=== PATIENT | male | born 1995 | race Caucasian/White ===

== ENCOUNTER 2025-02-23 07:03 | Emergency (ER) | payer OTHER, SELFPAY ==
[2025-02-23 07:17] VITALS: BP 147/78; PULSE 76; RESP 16; TEMP 36.7; O2SAT 100; BMI 25.0
--- NOTE | 2025-02-23 07:38 | DI.CT.S_ITS ---
PROCEDURE: CT ABDOMEN PELVIS W CON INDICATIONS: abd pain TECHNIQUE: After the administration of intravenous contrast, axial sections acquired from the lung bases to the pubic symphysis. Coronal and sagittal reformats were performed. For radiation dose reduction, the following was used: automated exposure control, adjustment of mA and/or kV according to patient size. COMPARISON: None. FINDINGS: Image quality: Diagnostic. Lower Chest: No significant findings. ABDOMEN: Liver: No solid mass. Gallbladder: No radiopaque gallstones or wall thickening. Biliary ducts: No biliary dilation. Pancreas: No ductal dilation. Spleen: Size is within normal limits. Adrenal Glands: No adrenal nodules. Kidneys and Ureters: There is moderate left hydronephrosis and a delayed left nephrogram. The left ureter is moderately dilated. There is a 4 x 6 mm stone at the left UVJ. Stomach and Bowel: Normal colonic caliber, without significant wall thickening. Normal appendix. Peritoneum: No abnormal intraperitoneal fluid. No free air. Ventral Wall: No significant ventral hernia. Abdominal Nodes: No retroperitoneal or mesenteric adenopathy by size criteria. Vessels: Aorta and inferior vena cava are normal in size. PELVIS: Pelvic Organs: Unremarkable. Bladder: No bladder wall thickening, accounting for underdistention. Pelvic Nodes: No enlarged lymph nodes. Miscellaneous: No inguinal hernias are seen. Bones: No aggressive osseous abnormality. IMPRESSION: A 4 x 6 mm stone obstructs the left ureter at the ureterovesical junction resulting in a delayed left nephrogram and moderate left hydronephrosis. The stone looks as if it is about to pass into the bladder. Dictated by: Tani Lara M.D. on 02/23/2025 at 8:01 Approved by: Tani Lara M.D. on 02/23/2025 at 8:08
[2025-02-23 07:40] LABS: Add Manual Diff / Slide Review NO; Hematocrit 43.3 % (41-53); Hemoglobin 15.5 g/dL (13.5-17.5); Lymphocytes Absolute Auto 1500 /uL (1100-4500); Mean Corpuscular HGB Conc 35.9 % (30-36); Mean Corpuscular Hemoglobin 32.7 PG (26-34); Mean Corpuscular Volume 91.2 fL (80-100); Platelet Count 196 X10^3/uL (150-400)
--- NOTE | 2025-02-23 07:42 | ED.ABDPAIN ---
HPI - Abdominal Pain General Chief Complaint: Abdominal Pain Stated Complaint: Lower stomach pain going to lower back x 1 day Time Seen by Provider: 02/23/25 07:38 Source: patient Mode of arrival: Ambulatory History of Present Illness HPI narrative: 29-year-old gentleman presents with left lower quadrant pain radiating to left flank region her last evening but occurred again this morning at 4:00 a.m. radiating to left groin region along with right lower quadrant also. Patient denies nausea, vomiting, diarrhea, constipation, rectal bleeding, urinary complaints, fever, chills, body aches. He last ate last evening at 5:00 p.m. Other than what is stated 14 point review of system is negative. Related Data Previous Rx's ?Medication ?Instructions ?Recorded prednisone 20 mg tablet 0 PO QDAY #7 tabs 07/28/16 hydrocodone 5 mg-acetaminophen 325 1 tab PO Q4-6H PRN pain #20 tabs 02/23/25 mg tablet tamsulosin 0.4 mg capsule (Flomax) 0.4 mg PO DAILY #30 caps 02/23/25 Allergies Allergy/AdvReac Type Severity Reaction Status Date / Time No Known Drug Allergies Allergy Verified 02/23/25 07:18 Review of Systems Review of Systems ROS Unobtainable: All systems reviewed & are unremarkable except as noted in HPI and below Patient History Social History Smoking Status: Current every day smoker Smoking Status: Current every day smoker Exam Narrative Exam Narrative: GENERAL: [29] year old patient appears stated age. Well-developed patient, in mild distress. HEAD: Atraumatic. Normocephalic. EYES: Pupils equal round and reactive. Extraocular motions intact. No scleral icterus. No injection or drainage. ENT: Nose without bleeding, purulent drainage. Throat without erythema, tonsillar hypertrophy or exudate. Airway patent. NECK: Trachea midline. Non tender CARDIOVASCULAR: Regular rate and rhythm without murmurs, gallops, or rubs. RESPIRATORY: Clear to auscultation. Breath sounds equal bilaterally. No wheezes, rales, or rhonchi. GASTROINTESTINAL: Abdomen soft, LLQ no r/r/g nondistended. EXTREMITIES: No edema or joint tenderness. BACK: Nontender without deformity or crepitance. No flank tenderness. NEURO: AOx3. SKIN: No rash or erythema of visible areas Initial Vital Signs Initial Vital Signs: Vital Signs Temperature 98.0 F 02/23/25 07:17 Pulse Rate 76 02/23/25 07:17 Respiratory Rate 16 02/23/25 07:17 Blood Pressure 147/78 H 02/23/25 07:17 Pulse Oximetry 100 02/23/25 07:17 Oxygen Delivery Method Room Air 02/23/25 07:17 Course Orders Ordered: ED Orders 02/23/25 07:21 EKG-12 Lead Stat 02/23/25 07:32 Complete Blood Count AUTO DIFF Stat Comprehensive Metabolic Panel Stat Lipase Stat 02/23/25 07:38 CT abdomen pelvis w con Stat 02/23/25 08:55 Urine Microscopic Stat Ondansetron HCl (Ondansetron 4 Mg/2 Ml Inj) 4 mg IV NOW PRN PRN Reason: Nausea And Vomiting Ondansetron HCl (Ondansetron 4 Mg Odt) 4 mg PO NOW PRN PRN Reason: Nausea And Vomiting Discontinued Medications Lactated Ringer's (Lactated Ringers) 1,000 mls @ 1,000 mls/hr IV BOLUS ONE Stop: 02/23/25 08:37 Last Infusion: 02/23/25 08:49 Dose: Infused Documented By: Admin: 02/23/25 07:51 Dose: 1,000 mls/hr Documented By: AILEEN Ketorolac Tromethamine (Ketorolac 30 Mg/Ml Vial) 15 mg IV NOW ONE Stop: 02/23/25 07:39 Last Admin: 02/23/25 07:50 Dose: 15 mg Documented By: AILEEN Vital Signs Vital signs: Vital Signs - 8 hr 02/23/25 07:17 Temperature 98.0 F Pulse Rate 76 Respiratory Rate 16 Blood Pressure 147/78 H Pulse Oximetry 100 Oxygen Delivery Method Room Air MDM - Abdominal Pain Lab Data 02/23/25 07:32 02/23/25 07:32 Labs: Lab Results 02/23/25 Range/Units 07:32 WBC 4.9 (4.5-11.0) X10^3/uL RBC 4.74 (4.5-5.9) X10^6/uL Hgb 15.5 (13.5-17.5) g/dL Hct 43.3 (41-53) % MCV 91.2 (80-100) fL MCH 32.7 (26-34) PG MCHC 35.9 (30-36) % RDW 12.7 (11.6-14.8) % Plt Count 196 (150-400) X10^3/uL Neut % (Auto) 54.1 (50-75) % Lymph % (Auto) 31.5 (25-40) % [place] % (Auto) 9.6 (3-14) % Eos % (Auto) 4.3 H (2-4) % Baso % (Auto) 0.5 (0-2) % Neut # (Auto) 2700 (1759-2190) /uL Lymph # (Auto) 1500 (2964-6477) /uL [place] # (Auto) 500 (0-900) /uL Eos # (Auto) 200 (0-450) /uL Baso # (Auto) 0 (0-100) /uL Sodium 138 (137-145) mmol/L Potassium 4.3 (3.4-5.1) mmol/L Chloride 103 (98-107) mmol/L Carbon Dioxide 26 (22-32) mmol/L BUN 21 H (9-20) mg/dL Creatinine 1.11 (0.66-1.25) mg/dL Estimated GFR > 60 (>60) mL/min BUN/Creatinine Ratio 18.9 (6-22) Glucose 86 (70-99) mg/dL Calcium 8.9 (8.4-10.2) mg/dL Total Bilirubin 0.7 (0.2-1.3) mg/dL AST 30 (17-59) IU/L ALT 15 (<50) IU/L Alkaline Phosphatase 64 (38-126) U/L Total Protein 7.5 (6.3-8.2) g/dL Albumin 4.7 (3.5-5.0) g/dL Globulin 2.8 (1.7-4.1) g/dL Albumin/Globulin Ratio 1.7 (1.0-2.8) Lipase 66 (23-300) U/L Point of care testing: Urine Dip Bedside Urine Glucose Negative Bedside Urine Bilirubin - Negative Bedside Urine Ketone - Negative Urine Specific [place] 1.015 Bedside Urine Occult Blood +++ Bedside Urine pH 6.0 Bedside Urine Protein +/- 15 Bedside Urine Urobilinogen - Negative Bedside Urine Nitrite - Negative Bedside Urine Leukocytes - Negative Esterase Imaging Data CT scan - abdomen/pelvis: Radiologist's Impression: [address] [address] [address] Scan Report Signed Patient: Imer Edwards MR#: [id number] : 1995 Acct:[id number] Age/Sex: 29 / M Date of Service: 02/23/25 Loc: ED Accession Number: [id number] Procedure: CT abdomen pelvis w con Ordering Provider: Bryson Pearson D.O. PROCEDURE: CT ABDOMEN PELVIS W CON INDICATIONS: abd pain TECHNIQUE: After the administration of intravenous contrast, axial sections acquired from the lung bases to the pubic symphysis. Coronal and sagittal reformats were performed. For radiation dose reduction, the following was used: automated exposure control, adjustment of mA and/or kV according to patient size. COMPARISON: None. FINDINGS: Image quality: Diagnostic. Lower Chest: No significant findings. ABDOMEN: Liver: No solid mass. Gallbladder: No radiopaque gallstones or wall thickening. Biliary ducts: No biliary dilation. Pancreas: No ductal dilation. Spleen: Size is within normal limits. Adrenal Glands: No adrenal nodules. Kidneys and Ureters: There is moderate left hydronephrosis and a delayed left nephrogram. The left ureter is moderately dilated. There is a 4 x 6 mm stone at the left UVJ. Stomach and Bowel: Normal colonic caliber, without significant wall thickening. Normal appendix. Peritoneum: No abnormal intraperitoneal fluid. No free air. Ventral Wall: No significant ventral hernia. Abdominal Nodes: No retroperitoneal or mesenteric adenopathy by size criteria. Vessels: Aorta and inferior vena cava are normal in size. PELVIS: Pelvic Organs: Unremarkable. Bladder: No bladder wall thickening, accounting for underdistention. Pelvic Nodes: No enlarged lymph nodes. Miscellaneous: No inguinal hernias are seen. Bones: No aggressive osseous abnormality. IMPRESSION: A 4 x 6 mm stone obstructs the left ureter at the ureterovesical junction resulting in a delayed left nephrogram and moderate left hydronephrosis. The stone looks as if it is about to pass into the bladder. MDM Narrative Medical decision making narrative: All lab work, vital signs, nurse triage note, medication list, previous ER visits, and all imaging studies reviewed. CT scan showed 4 x 6 mm stone obstructing the left ureter at the UVJ junction resulting in delayed left nephrogram and moderate left hydronephrosis. The stone looks like his as about to pass into the bladder. Patient given fluids Toradol here and discharged on Flomax strainer and [place] and to follow up with Urology. Differential diagnosis include kidney stone, kidney infection, diverticulitis, constipation, pancreatitis. Discharge Plan Departure Patient Disposition: Home Clinical Impression: Kidney stone Instructions: DI for Kidney Stones Activity Restrictions/Additional Instructions: Return with new or worsening symptoms. Keep hydrated. Take your medicines as directed. Follow up with Urology call office for appointment. ? Prescriptions: New tamsulosin [Flomax] 0.4 mg capsule 0.4 mg PO DAILY Qty: 30 0RF hydrocodone-acetaminophen 5-325 mg tablet 1 tab PO Q4-6H PRN (Reason: pain) Qty: 20 0RF No Action prednisone 20 MG tablet 0 PO QDAY Qty: 7 0RF Referrals: Guanakito Barba DO [Physician, Urology] Angel Ruiz MD [Primary Care Provider, Family Practice] Stand Alone Forms: Patient Portal/API
[2025-02-23 07:49] LABS: Alanine Aminotransferase 15 IU/L (<50); Albumin 4.7 g/dL (3.5-5.0); Albumin Globulin Ratio 1.7 (1.0-2.8); Alkaline Phosphatase 64 U/L (38-126); Blood Urea Nitrogen 21 mg/dL (9-20); Calcium 8.9 mg/dL (8.4-10.2); Carbon Dioxide 26 mmol/L (22-32); Chloride 103 mmol/L (98-107); Estimated Glomerular Filt Rate > 60 mL/min (>60); Globulin 2.8 g/dL (1.7-4.1); Glucose 86 mg/dL (70-99); HEMOLYSIS 15 (0-50); Lipase 66 U/L (23-300); Potassium 4.3 mmol/L (3.4-5.1); Sodium 138 mmol/L (137-145); Total Protein 7.5 g/dL (6.3-8.2)
[2025-02-23] MEDS: KETOROLAC 30 MG/ML VIAL 15 MG IV (07:50)
[2025-02-23] MEDS: LACTATED RINGERS 1,000 ML 1000 ML IV (07:51)
[2025-02-23 08:32] VITALS: PULSE 57; O2SAT 100
[2025-02-23 09:13] VITALS: BP 118/77; PULSE 81; O2SAT 100
[2025-02-23 09:13] LABS: Culture Indicated Urine Cult Not Indicated
[2025-02-23] MEDS: TAMSULOSIN 0.4 MG CAPSULE PO (09:14)
== END 2025-02-23 09:23 | disposition home or self-care (01) ==
PROVIDERS: Emergency Provider Family Medicine; PCP Family Medicine
DX: N20.0 Calculus of kidney (principal)
CPT/HCPCS: 36415; 74177; 80053; 81003; 81015; 83690; 85025; 96361; 96374; 99284; J1885; Q9967